=== PATIENT | male | born 1950 | race Caucasian/White ===

== ENCOUNTER 2020-11-19 11:48 | Day surgery (SDC) | payer MEDICARE, BC ==
--- OUTSIDE RECORDS SUMMARY | 2020-11-09 07:55 | XMSREPORT | Referral Summary ---
:[address] [facility] Address [address] [place] [address] [address] [place] [address] Care Team Providers Name Role Phone Quinn Edouard PA-C Primary Care Provider Quinn Edouard PA-C Attributed Provider Reason for Referral Transitions of Care (Routine) Status Reason Specialty Diagnoses / Referred By Referred To Procedures Contact Contact New Request Patient Diagnoses Family history of colon cancer in mother Mikala Edouard, [facility], [facility] Preference [place], [address] [place] [address] [place] [id number] Phone: Fax: Reason for Visit Reason Comments Rash Started a week ago. Ankle Pain Started a month ago. No inju ry that he is aware of. Has a sore on the side of ankle Encounter Details Date Type Department Care Team Description 11/06/2020 Office Visit [facility] Mikala Edouard, Family histo ry of colon [facility] JAIRO cancer in mother [address] [place] (Primary Dx) [place] [address] [place] [address] Allergies No Known Active Allergiesdocumented as of this encounter (statuses as of 11/06/2020) Medications Medication Sig Dispensed Refills Start Date End Date Status Multiple Vitamins-Minerals Take 1 tablet 0 Active (KIMMY MULTIVITAMIN FOR by mouth 2 WOMEN) TABS times a day. cyanocobalamin (VITAMIN Take 500 mcg 0 Active B-12) 500 mcg tablet by mouth 1 time per day. clotrimazole-betamethasone APPLY TO 45 g 2 01/24/2018 Active (LOTRISONE) 1-0.05 % AFFECTED AREA creamIndications: Groin 2 TIMES A DAY rash NEEDED FOR RASH triamcinolone acetonide Apply to 80 g 1 01/02/2020 Active (KENALOG,ARISTOCORT) 0.1 % affected area creamIndications: Groin 2 times a day rash atorvaSTATin (LIPITOR) 20 Take 1 tablet 90 tablet 3 01/02/2020 Active mg tabletIndications: Pure (20 mg) by hypercholesterolemia mouth every night at bedtime lisinopril-hydroCHLOROthia Take 1 tablet 0 1 Active zide (PRINZIDE, by mouth 1 ZESTORETIC) 20-25 mg time per day tablet ciprofloxacin (CIPRO) 500 500 mg po BID, 4 tablet 0 1 Active mg tabletIndications: start the Prostate cancer (HCC) night before your biopsy Additional Information Patient not taking. Reported on 11/06/2020 warfarin (COUMADIN) 2.[address] [facility] 360 tablet 0 10/08/19 21 Active tabletIndications: History Anticoagulation Pt:Take of DVT (deep vein as directed. (Insurance thrombosis) Purposes: 5-7.5 mg daily dose range) Call [phone] if ? 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 Morbid obesity with BMI of 45.0-49.9, adult 01/25/2019 Status post gastric bypass for obesity 12/14/2018 History of colon polyps 07/04/2013 Erectile dysfunction 08/21/2012 Prostate cancer 08/21/2012 Pure hypercholesterolemia 03/20/2003 Essential hypertension 10/01/2002 Sleep apnea documented as of this encounter (statuses as of 11/06/2020) Immunizations Name Administration Dates Next Due FLU VACCINE TRIVALENT 03/05/2013 MULTIDOSE(Fluvirin,Afluria) FLU VACCINE HIGH DOSE 65YR+(Fluzone) 11/05/2019, 01/25/2019, 01/24/2018, 01/05/2017, 12/29/2015 INFLUENZA MULTIDOSE 0.5ML 6 MONTHS AND 02/17/2015, 4 UP Influenza Vaccine,unspecified 02/17/2015, 02/25/2014, 2013, 12/26/2007 Pfizer COVID-19 Vaccine 04/22/2020, 04/01/2020 Pneumococcal Conj PCV13 12/29/2015 Pneumococcal Polysaccharide PPSV23 01/25/2019, 07/08/2013 TD,not adsorbed 10/20/1989 TDAP 07/01/2013 documented as of this encounter Social History Tobacco Use Types Packs/Day Years Used Date Never Smoker Smokeless Tobacco: Never Used Alcohol Use Standard Drinks/Week Comments Yes .[id number] (1 standard drink = 0.6 oz pure Mixed Drinks alcohol) Physical Activity Answer Date Recorded On average, how many days per week do you engage in moderate to 0 days 01/02/2020 strenuous exercise (like walking fast, running, jogging, dancing, swimming, biking, or other activities that cause a light or heavy sweat)? On average, how many minutes do you engage in exercise at th is 0 min 01/02/2020 level? 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 documented as of this encounter Plan of Treatment Date Type Specialty Care Team Description 11/06/2020 Orders Only Laboratory Arrived 06/08/2021 Office Visit Urology Nicholas Sosa MD [address] [place] [id number] [phone] Name Type Priority Associated Diagnoses Order [facility] CLINIC REFERRAL Referral Routine Family history of colon O rdered: 11/06/2020 ENDOSCOPY NON ONE CHART cancer in mother documented as of this encounter Visit Diagnoses Diagnosis Family history of colon cancer in mother - Primary documented in this encounter
[~2020-11-19 11:48] MED LIST: Midazolam 1 MG/ML 2 ML SDV ONE; Propofol 200 MG/20 ML SDV ONE
[2020-11-19] MEDS ORDERED: Lactated Ringers 1,000 ML IV SCH (12:00)
[2020-11-19] MEDS ORDERED: Sodium Chloride 0.9% 10 ML Syringe FLUSH PRN (12:00)
[2020-11-19] MEDS ORDERED: Propofol 200 MG/20 ML SDV ONE ×2 (12:33→12:39)
--- NOTE | 2020-11-19 12:33 | PCM.PN ---
- General Info Date of Service: 11/19/20 - Review of Systems Systems Review Comment:: 70-year-old male referred for colonoscopy. He has a known family history of colon cancer in his mother. Patient is medically stable to proceed today. His recent history and physical is reviewed and no significant changes are noted. I have discussed the proposed colonoscopy with the patient. His questions were answered and he agrees to proceed accepting risks. - Patient Data Weight - Most Recent: 137.892 kg Med Orders - Current: Current Medications Lactated Ringer's (Ringers, Lactated) 1,000 mls @ 125 mls/hr IV ASDIRECTED GRAYSON Last Admin: 11/19/20 12:23 Dose: 125 mls/hr Documented by: Sodium Chloride (Sodium Chloride 0.9% 10 Ml Syringe) 10 ml FLUSH ASDIRECTED PRN PRN Reason: Keep Vein Open Discontinued Medications Midazolam HCl (Midazolam 1 Mg/Ml 2 Ml Sdv) Confirm Administered Dose 2 mg .ROUTE .STK-MED ONE Stop: 11/19/20 08:18 Propofol (Propofol 200 Mg/20 Ml Sdv) Confirm Administered Dose 200 mg .ROUTE .STK-MED ONE Stop: 11/19/20 08:18 - Problem List Review Problem List Initiated/Reviewed/Updated: Yes - My Orders Last 24 Hours: My Active Orders 11/19/20 12:00 Patient Status [ADT] Routine Peripheral IV Care [RC] . DIRECTED Verify Patient Consent Obtain [RC] ASDIRECTED Lactated Ringers [Ringers, Lactated] 1,000 ml IV ASDIRECTED Sodium Chloride 0.9% [Saline Flush] 10 ml FLUSH ASDIRECTED PRN Peripheral IV Insertion Adult [OM.PC] Routine - Assessment Assessment:: Family history of colon cancer - Plan Plan:: Colonoscopy
[2020-11-19] MEDS ORDERED: Midazolam 1 MG/ML 2 ML SDV ONE (12:39)
--- NOTE | 2020-11-19 13:23 | PCM.OPNOTE ---
- General Post-Op/Procedure Note Date of Surgery/Procedure: 11/19/20 Operative Procedure(s): Colonoscopy with polypectomy Findings: 2 colon polyps Moderate sigmoid diverticulosis Moderate sized internal hemorrhoids Pre Op Diagnosis: Family history of colon cancer Post-Op Diagnosis: Colon polyps. Diverticulosis. Hemorrhoids Anesthesia Technique: MAC Primary Surgeon: Demetrio Velazquez Pathology: colon polyps EBL in mLs: 2 Complications: None Condition: Good
--- NOTE | 2020-11-19 15:06 | OR ---
Date of Procedure: 11/19/2020 PREOPERATIVE DIAGNOSIS: Family history of colon cancer. POSTOPERATIVE DIAGNOSES: Colon polyps, sigmoid diverticulosis, hemorrhoids. OPERATION PERFORMED: Colonoscopy with polypectomy. INDICATIONS FOR SURGERY: This 70-year-old male has a known family history of colon cancer in his mother. It has been almost 10 years since his last colonoscopy, and he comes for this exam. FINDINGS: Two polyps were noted on today's exam. There is a 5 mm sessile polyp in the cecum and an 8 mm sessile polyp in the transverse colon. The patient also has a moderate degree of uncomplicated diverticulosis in the sigmoid region and moderate-sized internal hemorrhoids. DESCRIPTION OF PROCEDURE: The patient was taken to the operating room. He was given intravenous sedation and with him in the left lateral decubitus position, digital rectal exam was performed showing no rectal masses. The Olympus colonoscope was inserted into the rectum. Retroflexed examination of the rectal canal was performed. The scope was then carefully advanced under direct visualization through the entire length of the colon until the cecum was reached. Cecal acquisition was confirmed by noting a normal internal cecal anatomy including the appendiceal orifice and the ileocecal valve. In the cecum, the above-described polyp was identified. This was removed in its entirety with multiple bites of the biopsy forceps. The scope was then slowly withdrawn sequentially re-examining the colonic segments and during withdrawal of the scope, the transverse colon polyp was identified. This was removed with a cautery snare and retrieved. The examination was completed and with no sign of any complication, the scope was removed. The patient was taken from the operating room in satisfactory condition. ESTIMATED BLOOD LOSS: 2 mL. COMPLICATIONS: None. PROGNOSIS: Good. BOO Velazquez MD /[id number]
== END 2020-11-19 14:18 | disposition home or self-care (01) ==
LOC: LL.SDS 11:48
PROVIDERS: ATTEND Surgery
DX: Z12.11 Encounter for screening for malignant neoplasm of colon (principal); D12.0 Benign neoplasm of cecum; D12.3 Benign neoplasm of transverse colon; Z80.0 Family history of malignant neoplasm of digestive organs; K57.30 Diverticulosis of large intestine without perforation or abscess without bleeding; K64.8 Other hemorrhoids; I87.2 Venous insufficiency (chronic) (peripheral); L24.89 Irritant contact dermatitis due to other agents; I10 Essential (primary) hypertension; E78.00 Pure hypercholesterolemia, unspecified; G47.30 Sleep apnea, unspecified; E66.01 Morbid (severe) obesity due to excess calories; G47.33 Obstructive sleep apnea (adult) (pediatric); Z85.46 Personal history of malignant neoplasm of prostate; Z79.899 Other long term (current) drug therapy; Z79.01 Long term (current) use of anticoagulants; Z68.42 Body mass index [BMI] 45.0-49.9, adult
CPT/HCPCS: 00812; 88305; J2250; J2704; J7120